=== PATIENT | female | born 1960 | race Caucasian/White ===

== ENCOUNTER 2017-04-20 05:39 | Day surgery (SDC) | payer BC ==
[~2017-04-20] VITALS: Ht 162.6 cm; Wt 60.6 kg
[~2017-04-20 05:39] MED LIST: DEPAKOTE; IBUPROFEN; LITHIUM
[2017-04-20 06:50] VITALS: Ht 162.6 cm; Wt 60.6 kg
[2017-04-20 07:31] VITALS: BP 136/81; RESP 14
--- NOTE | 2017-04-20 08:14 | OPPN ---
Date/Time of Note Date/Time of Note DATE: 04/20/17 TIME: 08:12 Operative Report Preoperative Diagnosis Abdominal pain Dysphagia Postoperative Diagnosis Small hiatal hernia Gastroesophageal reflux disease Gastritis with erosions Operation/Procedure Performed Esophagogastroduodenoscopy and biopsy Provider: ISABEL SIDDIQUI MD Anesthesia Type: moderate sedation Estimated blood loss: none Transfusion Required: no Specimens Gastric mucosal biopsy Grafts/Implants: none Complications: no ISABEL SIDDIQUI MD Apr 20, 2017 08:14
[2017-04-20] MEDS ORDERED: MIDAZOLAM 1 MG/ML 2 ML INJ ONE (09:03)
[2017-04-20] MEDS ORDERED: FENTAnyl 50 MCG/ML VIAL ONE (09:03)
--- NOTE | 2017-04-20 09:34 | GILP ---
DATE OF PROCEDURE: 04/20/2017 PROCEDURE PERFORMED: Esophagogastroduodenoscopy and biopsy. SURGEON: William Anderson MD PREOPERATIVE DIAGNOSES: 1. Abdominal pain. 2. Chronic heartburn. 3. Dysphagia. POSTOPERATIVE DIAGNOSES: 1. Small hiatal hernia. 2. Gastroesophageal reflux disease. 3. Gastritis with erosions. 4. Gastric mucosal biopsies were taken for Helicobacter pylori test. INDICATION: Ms. Pj Cabral is a 56-year-old female patient who had upper abdominal pain not responding to therapy. She also had dysphagia. The patient was scheduled for endoscopy examination for further evaluation. The procedure and possible complications were well explained to the patient. She understood and consented to the procedure. DESCRIPTION OF PROCEDURE: Under the influence of fentanyl and Versed, the gastroscope was carefully introduced into the esophagus. Under direct vision, it was advanced to the stomach, into the pylorus, into the duodenal bulb, and descending duodenum. FINDINGS: Esophagus: The patient had a small hiatal hernia and gastroesophageal reflux disease. Stomach: She had gastritis with erosions. Gastric mucosal biopsies were taken for Helicobacter pylori test. Duodenum was normal. She tolerated the procedure very well. There was no complication from the procedure. At the end of procedure, she was awake with stable vital signs and she was discharged home in the care of her family. IMPRESSION: 1. Small hiatal hernia. 2. Gastroesophageal reflux disease. 3. Gastritis with erosions. 4. Gastric mucosal biopsies were taken for Helicobacter pylori test. PLAN: 1. Nexium 24 hours p.o. q.a.m. 2. Zantac 300 mg p.o. nightly. 3. Await Helicobacter pylori test report. Dictated By: MD MAGALY Barnett/[email or web address] /Document#: [id number]
== END 2017-04-20 13:41 | disposition home or self-care (01) ==
LOC: GIL 05:39
PROVIDERS: ATTEND Internal Medicine Gastroenterology
DX: K44.9 Diaphragmatic hernia without obstruction or gangrene (principal); B96.81 Helicobacter pylori [H. pylori] as the cause of diseases classified elsewhere; K21.9 Gastro-esophageal reflux disease without esophagitis; K29.60 Other gastritis without bleeding
CPT/HCPCS: 43239; 87081; J2250; J3010; Z7610